=== PATIENT | male | born 1985 | race African-American/Black ===

== ENCOUNTER 2017-09-25 09:53 | Emergency (ER) | payer SELFPAY ==
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
[2017-09-25] MEDS ORDERED: Ketorolac 60 MG/2 ML SDV IM ONE (10:21)
--- NOTE | 2017-09-25 10:57 | CR ---
PA and lateral chest Clinical history: Shortness of breath Comparison: None Findings: The costophrenic angles are sharp. The cardiac mediastinum is normal and the lungs are leonidas r. Impression: Normal chest
--- NOTE | 2017-09-25 10:59 | CR ---
Lumbar spine 3 views Clinical history: Back pain Comparison: None. Findings: The pedicles are intact throughout. The vertebral bodies are of normal stature as are the d isks. There is no spondylolysis or spondylolisthesis. SI joints appear normal Impression: Normal exam
== END 2017-09-25 11:25 | disposition home or self-care (01) ==
LOC: MW.ED 09:53
DX: M54.41 Lumbago with sciatica, right side (principal); M54.42 Lumbago with sciatica, left side
CPT/HCPCS: 71046; 72100; 96372; 99283; J1885; J2360